=== PATIENT | female | born 1970 | race Hispanic/Latino ===

== ENCOUNTER 2024-12-05 04:30 | Emergency (ER) | payer BC, OTHER ==
[~2024-12-05] VITALS: Ht 157.5 cm; Wt 63.5 kg
[2024-12-05] MEDS ORDERED: MORPHINE SULFATE 4 MG/ML VIAL IV ONE (05:00)
[2024-12-05] MEDS ORDERED: FAMOTIDINE 20 MG/ 2 ML VIAL IV ONE (05:00)
[2024-12-05 05:08] LABS: BASOPHILS 0.4 % (0.1-1.2); EOSINOPHILS 2.1 % (0.7-5.8); LYMPHOCYTES 24.9 % (19.3-51.7); MCH 29.2 PG (25.6-32.2); MCHC 34.1 g/dL (32.2-35.5); MCV 85.7 fL (79.4-94.8); MONOCYTES 8.8 % (4.7-12.5); NEUTROPHILS 63.4 % (34.0-71.1); RBC 4.83 M/uL (3.93-5.22)
[2024-12-05 05:22] LABS: ALT (SGPT) 70.0 U/L (14-59); AST (SGOT) 49.0 U/L (15-37); GLOMERULAR FILTRATION RATE,EST 107.0 mL/min (>60); PROTEIN, TOTAL 7.8 g/dL (6.4-8.2); UREA NITROGEN 9.0 mg/dL (7-18)
[2024-12-05] MEDS ORDERED: LACTATED RINGER'S 1,000 ML IV ONE (05:30)
[2024-12-05 07:24] LABS: BLOOD/HGB, URINE TRACE-I (Negative); KETONE, URINE NEGATIVE (Negative); LEUK ESTERASE, URINE NEGATIVE (negative); NITRITE, URINE NEGATIVE (negative)
[2024-12-05] MEDS ORDERED: CYCLOBENZAPRINE10 MG PO (07:24)
[2024-12-05 07:28] LABS: BACTERIA, URINE NONE SEEN /hpf (negative); CASTS, URINE NONE SEEN \\lpf; CRYSTALS, URINE NONE SEEN (0-1+); EPITHELIAL CELLS, URINE SQUAMOUS 1+ /lpf (0-1+); REFLEX CULTURE, URINE No (No)
[2024-12-05 07:38] VITALS: BP 128/87
== END 2024-12-05 07:38 | disposition home or self-care (01) ==
LOC: ED 04:30
PROVIDERS: Internal Medicine
DX: S39.011A Strain of muscle, fascia and tendon of abdomen, initial encounter (principal); K76.0 Fatty (change of) liver, not elsewhere classified; I10 Essential (primary) hypertension; X58.XXXA Exposure to other specified factors, initial encounter; Z88.0 Allergy status to penicillin; Z88.6 Allergy status to analgesic agent
CPT/HCPCS: 36415; 74177; 80053; 81001; 83690; 85025; 96374; 96375; 99284-25; J1790; J2270; J2405; J7121